=== PATIENT | female | born 1970 | race Caucasian/White ===

== ENCOUNTER 2017-02-05 11:54 | Emergency (ER) | payer MEDICAID ==
--- NOTE | ~2017-02-05 | CR63 ---
[facility] A Service of [facility] RADIOLOGY TEXT RESULTS PATIENT: JOSE MIGUEL MADDEN LOCATION: SED : 66 UNIT #: [id number] AGE: [address]: Nayeli Duque SEX: F ORDER DR: [id number] [place] [id number] E MR#: [id number] Acc #: [id number] NAME: JOSE MIGUEL MADDEN : 1970 SEX: F STUDY DATE/TIME: 02/05/2017 13:01 UNIT: SED ROOM: STUDY DESCRIPTION: CR Chest 2 View Attending Physician: Nayeli Duque Pa-C Ordering Physician: Nayeli Duque Pa-C Primary Care Physician: Oscar Martin M.D. MEDICAL IMAGING REPORT This report is preliminary unless electronic signature is present. EXAM Chest x-ray 02/05 INDICATIONS Cough, congestion that started last Sunday. History of smoking and hypertension. FINDINGS 2 views of the chest are compared with 10/22/2013. Cardiac and mediastinal contours are normal. Mild right upper lobe infiltrate is concerning for pneumonia. The lungs are otherwise clear. There is some chronic elevation of the right hemidiaphragm. No pneumothorax. There is underlying emphysema. IMPRESSION Emphysema with mild infiltrate in the right upper lobe which presumably reflects pneumonia. Dictated by... Wilfredo Mclean Jr., M.D. THIS IS AN ELECTRONICALLY VERIFIED REPORT Wilfredo Mclean Jr., M.D. at 02/05/2017 3:45 PM ELIECER/jax TD: 02/05/2017 12:55 JOB #: [id number] MEDICAL IMAGING REPORT Page 1 of 1
[~2017-02-05 11:54] MED LIST: ALBUTEROL MININEB NEB; COMBIVENT U/D3 M2 INH; DOXYCYCLINE150 MG PO; DUONEB 2.5-0.5 M3 ML NEB; GABAPENTIN300 MG PO; MS CONTIN30 M1 PO; NAPROSYN500 MG PO; NO MEDICATIONS; PREDNISONE10 MG PO; PREDNISONE50 MG PO; ROBAXIN500 MG PO; SOBOXONE
[2017-02-05 12:11] LABS: INFLUENZA A NEG (NEG); INFLUENZA B NEG (NEG)
== END 2017-02-05 13:12 | disposition home or self-care (01) ==
LOC: SED 11:54
PROVIDERS: Physician Assistant Medical
DX: J12.1 Respiratory syncytial virus pneumonia (principal); F17.210 Nicotine dependence, cigarettes, uncomplicated; Z90.49 Acquired absence of other specified parts of digestive tract
CPT/HCPCS: 71020; 87804; 94640; 99283